=== PATIENT | male | born 1995 | race Caucasian/White ===

== ENCOUNTER 2019-06-07 14:51 | Emergency (ER) | payer MEDICAID, OTHER ==
[~2019-06-07] VITALS: Ht 182.9 cm; Wt 77.1 kg
[2019-06-07 14:51] VITALS: BP_SYST 138
--- NOTE | 2019-06-07 14:51 | NUR ---
Patient to ER bed 8 to gown for evaluation. Side rails up. Report given to CHANTEL Campuzano.
--- NOTE | 2019-06-07 14:52 | NUR ---
PT CAME TO ER AFTER HURTING R KNEE WHILE PLAYING BASKETBALL. REDNESS AND SWELLING NOTED TO R KNEE, NO OBVIOUS DEFORMITY.
--- NOTE | 2019-06-07 14:53 | NUR ---
ER at bedside examining patient.
[2019-06-07] MEDS ORDERED: KETOROLAC TROMETHAMINE 60 MG/2 ML VIAL IM ONE (16:00)
--- NOTE | 2019-06-07 16:06 | NUR ---
Knee Immobolizer applied to right knee. PT and DP pulse noted. Capillary refill <3 seconds. Patient has ability to move toes. Has sensation present to affected site. Skin color within normal limits.
--- NOTE | 2019-06-07 16:07 | NUR ---
Crutches properly fitted for patient by PAULA Yang. Patient given crutch walking instructions and demonstration. Is able to demonstrate adequate crutch walking technique with crutches provided.
[2019-06-07] MEDS ORDERED: MORPHINE 4 MG/ML INJ. SYRINGE IVP ONE (16:30)
[2019-06-07 16:47] VITALS: BP_SYST 138
--- NOTE | 2019-06-07 16:47 | NUR ---
Patient given written and verbal discharge instructions and verbalizes understanding. ER MD discussed with patient the results and treatment provided. Patient in stable condition. ID arm band removed. IV catheter removed intact and dressing applied, no active bleeding. Rx of NAPROSYN given. Patient educated on pain management and to follow up with PMD. Pain Scale 3/10 TOLERABLE. Opportunity for questions provided and answered. Medication side effect fact sheet provided.
== END 2019-06-07 16:47 | disposition home or self-care (01) ==
LOC: SED 14:51
DX: S86.811A Strain of other muscle(s) and tendon(s) at lower leg level, right leg, initial encounter (principal); X50.0XXA Overexertion from strenuous movement or load, initial encounter; Y93.67 Activity, basketball; Y92.89 Other specified places as the place of occurrence of the external cause; Y99.8 Other external cause status
CPT/HCPCS: 73564; 96372; 96374; 99283; J1885; J2270